=== PATIENT | male | born 1975 ===

== ENCOUNTER 2016-09-09 06:45 | Observation (INO) | payer OTHER ==
[2016-09-09] MEDS ORDERED: Sodium Chloride 0.9% 1,000 ML IV ONE ×2 (07:52→15:05)
[2016-09-09] MEDS ORDERED: Lidocaine 2% Viscous 100 ml PO STA (07:52)
[2016-09-09] MEDS ORDERED: Aluminum Hydroxide/Magnesium Hydroxide Susp (30 mL) PO STA (07:52)
[2016-09-09] MEDS ORDERED: Belladonna-Phenobarbital PO STA (07:52)
[2016-09-09] MEDS ORDERED: Sodium Chloride 0.9% 1,000 ML ONE (08:10)
[2016-09-09] MEDS ORDERED: Alum-Mag Hydrox-Simethicone Susp (30 mL) ONE (08:10)
[2016-09-09] MEDS ORDERED: Belladonna-Phenobarbital ONE (08:10)
[2016-09-09] MEDS ORDERED: Alum-Mag Hydrox-Simethicone Susp (30 mL) PO STA (08:25)
[2016-09-09 08:29] LABS: BASO % 0.2 % (0.0-2.0); EOS # 0.1 K/uL (0.0-0.7); EOS % 1.6 % (0.0-4.0); HEMOGLOBIN 16.2 g/dL (12.0-18.0); LYMPH # 1.4 K/uL (1.0-4.3); LYMPH % 16.1 % (20.0-40.0); MEAN CELL VOLUME 86.5 fL (80.0-94.0); MEAN CORPUSCULAR HEMOGLOBIN 29.5 pg (27.0-31.0); MEAN CORPUSCULAR HGB CONC 34.1 g/dL (33.0-37.0); MEAN PLATELET VOLUME 7.8 fL (7.2-11.7); MONO # 1.1 K/uL (0.0-0.8); MONO % 12.8 % (0.0-10.0); NEUT # 5.9 K/uL (1.8-7.0); NEUT % 69.3 % (50.0-75.0); RBC 5.47 Mil/uL (4.40-5.90); WHITE BLOOD COUNT 8.5 K/uL (4.8-10.8)
[2016-09-09 08:33] LABS: ALBUMIN 4.4 g/dL (3.5-5.0)
[2016-09-09 08:36] LABS: ALB/GLOB RATIO 1.2 (1.0-2.1); ALT/SGPT 69 U/L (21-72); AST/SGOT 73 U/L (17-59); BLOOD UREA NITROGEN 23 mg/dL (9-20); CALCIUM 9.4 mg/dl (8.6-10.4); GFR AFRICAN-AMERICAN > 60; GFR NON-AFRICAN AMERICAN > 60; LIPASE 89 U/L (23-300)
[2016-09-09 08:59] LABS: URINE BILIRUBIN NEGATIVE (NEGATIVE); URINE BLOOD NEGATIVE (NEGATIVE); URINE CLARITY Clear (Clear); URINE COLOR Yellow (YELLOW); URINE GLUCOSE (UA) 2+ mg/dL (Normal); URINE LEUKOCYTE ESTERASE NEG Leu/uL (Negative); URINE NITRATE NEGATIVE (NEGATIVE); URINE PROTEIN NEGATIVE (NEGATIVE); URINE UROBILINOGEN NORMAL mg/dL (0.2-1.0)
--- NOTE | 2016-09-09 08:59 | C.PDOC ---
History Of Present Illness Patient is a 41 y/o male, whose PMHx includes diabetes, that presents to the ED for evaluation of epigastric abdominal pain with bloating feeling for the last 3 days. Patient admits to feeling nauseous, and reports having 1 episode of vomiting last night. Pt notes last BM was 3 days ago. Otherwise, denies any urinary symptoms, fever, chills, or any other associated symptoms at this time. Time Seen by Provider: 09/09/16 07:25 Chief Complaint (Nursing): Abdominal Pain History Per: Patient History/Exam Limitations: no limitations Onset/Duration Of Symptoms: Days (3) Current Symptoms Are (Timing): Still Present Location Of Pain/Discomfort: Epigastric Radiation Of Pain To:: None Quality Of Discomfort: Gas Associated Symptoms: Nausea, Vomiting, Constipation. denies: Fever, Chills, Diarrhea, Loss Of Appetite, Back Pain, Chest Pain, Urinary Symptoms Exacerbating Factors: None Alleviating Factors: None Last Bowel Movement: Days Ago (3) Recent travel outside of the [place]: No Additional History Per: Patient Past Medical History Reviewed: Historical Data, Nursing Documentation, Vital Signs Vital Signs: Last Vital Signs Temp 99.3 F 09/09/16 07:01 Pulse 102 H 09/09/16 07:01 Resp 18 09/09/16 07:01 BP 133/78 09/09/16 07:01 Pulse Ox 96 09/09/16 11:55 - Medical History PMH: Denies: Chronic Kidney Disease Surgical History: Appendectomy Family History: States: Unknown Family Hx - Social History Hx Alcohol Use: Yes Hx Substance Use: No - Immunization History Hx Tetanus Toxoid Vaccination: No Hx Influenza Vaccination: No Hx Pneumococcal Vaccination: No Review Of Systems Except As Marked, All Systems Reviewed And Found Negative. Constitutional: Negative for: Fever, Chills Cardiovascular: Negative for: Chest Pain, Palpitations Gastrointestinal: Positive for: Nausea, Vomiting, Abdominal Pain. Negative for : Diarrhea, Hematemesis Genitourinary: Negative for: Dysuria, Frequency, Hematuria Musculoskeletal: Negative for: Back Pain Skin: Negative for: Rash Neurological: Negative for: Weakness, Numbness Physical Exam - Physical Exam Appears: Non-toxic, No Acute Distress Skin: Normal Color, Warm, Dry Head: Atraumatic, Normacephalic Eye(s): bilateral: Normal Inspection Neck: Normal ROM, Supple Cardiovascular: Rhythm Regular, No Murmur Respiratory: Normal Breath Sounds, No Rales, No Rhonchi, No Wheezing Gastrointestinal/Abdominal: Soft, Tenderness (epigastric), No Guarding, No Rebound Extremity: Normal ROM Neurological/Psych: Oriented x3, Normal Speech, Normal Cognition ED Course And Treatment - Laboratory Results Result Diagrams: 09/09/16 08:21 09/09/16 08:21 O2 Sat by Pulse Oximetry: 96 (on RA) Pulse Ox Interpretation: Normal Progress Note: Blood work, urinalysis, obstructive series x-ray ordered and reviewed. Patient was treated with , Maalox, Pepcid, and IV fluids. Medical Decision Making Medical Decision Making: Patient with possible mechanical obstruction. Discussed with Dr. Cummings. Will hospitalize, observe and re-evaluate. Endorsed to surgical manager. ED OBSERVATION Date of observation admission: 09/09/16 Time of observation admission: 10:00 - Observation admission statement Patient is being placed in observation because:: abdominal pain, still symptomatic, will do CT abdomen Disposition Discussed With : Guillermina Cummings - Disposition Disposition: HOSPITALIZED Disposition Time: 15:03 Condition: STABLE - Clinical Impression Clinical Impression: SBO (small bowel obstruction) - Scribe Statement The provider has reviewed the documentation as recorded by the Scribe Jasmin Cabello All medical record entries made by the Scribe were at my direction and personally dictated by me. I have reviewed the chart and agree that the record accurately reflects my personal performance of the history, physical exam, medical decision making, and the department course for this patient. I have also personally directed, reviewed, and agree with the discharge instructions and disposition. Decision To Admit - Pt Status Changed To: Hospital Disposition Of: Observation - . Bed Request Type: Regular Patient Diagnosis: SBO (small bowel obstruction)
--- NOTE | 2016-09-09 11:23 | RAD ---
PROCEDURE: Radiographs of the chest and abdomen (obstructive series) HISTORY: abd pain COMPARISON: No prior. TECHNIQUE: AP radiograph of the chest, with upright and supine radiographs of the abdomen. FINDINGS: CHEST: Lungs: Clear. Cardiovascular: Normal size heart. No pulmonary vascular congestion. Pleura: No pleural fluid. No pneumothorax. Other findings: None. ABDOMEN AND PELVIS: Bowel: Multiple air-fluid level seen at the left abdomen. [id number] dilated small bowel loops. Free air: None. Bones: Unremarkable. Other findings: None. IMPRESSION: Dilated small bowel loops and multiple air-fluid level at the left abdomen. The possibility of bowel obstruction should be excluded. If clinically warranted further assessment by CT is suggested.
[2016-09-09] MEDS ORDERED: Iohexol 240 (50 ml) ONE (13:28)
--- NOTE | 2016-09-09 14:46 | CT ---
PROCEDURE: CT Abdomen and Pelvis with Oral contrast. HISTORY: abdominal pain, r/o obstruction COMPARISON: None. TECHNIQUE: Contiguous axial images of the abdomen and pelvis. Oral contrast was administered. No IV contrast given. Coronal and Sagittal reformats generated. Radiation dose: Total exam DLP = 1139.29 mGy-cm. This CT exam was performed using one or more of the following dose reduction techniques: Automated exposure control, adjustment of the mA and/or kV according to patient size, and/or use of iterative reconstruction technique. FINDINGS: LOWER THORAX: Unremarkable. LIVER: Mild hepatomegaly is noted. No evidence of discrete mass lesion in the liver in this noncontrast study. GALLBLADDER AND BILE DUCTS: No evidence of cholecystitis. The biliary tree is not dilated. PANCREAS: Unremarkable. No mass. No ductal dilatation. SPLEEN: Unremarkable. No splenomegaly. ADRENALS: Unremarkable. KIDNEYS AND URETERS: Unremarkable. No stone or hydronephrosis. BLADDER: Grossly unremarkable. REPRODUCTIVE: Unremarkable. APPENDIX: Unremarkable. BOWEL: There is moderately dilated small bowel loops at the left mid and upper abdomen. There is a transitional point noted at the mid abdomen image 64 series 2 and image 47 series 601. Small bowel wall thickening is also noted. The possibility of small bowel lesion or adhesion should be considered. PERITONEUM: Unremarkable. No fluid collection. No free air. LYMPH NODES: Unremarkable. No enlarged lymph nodes. VASCULATURE: Unremarkable. No aortic aneurysm. BONES: No fracture or destructive lesion. OTHER FINDINGS: None. IMPRESSION: Small bowel obstruction. Moderately dilated small bowel loops. Transitional point seen at the mid abdomen. Small bowel wall thickening. The underlying etiology for bowel obstruction could be small bowel mass or adhesions.
--- NOTE | 2016-09-09 16:05 | CP.PCM.HP ---
History of Present Illness - History of Present Illness History of Present Illness: Surgery: Dr. Cummings CC: Abd pain HPI: 41M w. pmh of DM presents to ED w. abd pain since Saturday. Pt states that the pain is constant. Pain is in epigastric/LUQ area. Feels like gas pain. Pt has never had this pain before. Pain is accompanied by nausea and vomiting, NBNB. Pt states that he has not passed flatus or had BM since Saturday. CT and obstructive series in ED showed findings consistent w. SBO. Pt denies TREADWELL/ blurred vision, no F/C, no CP/palpitiations, no SOB/cough, no diarrhea, no hematuria/dysuria, no wekaness/fatigue. PMH: DM PSH: appendectomy Meds: MAR reviewed NKDA Social: No ETOH/tobacco/drugs Fhx: Non-contributory Present on Admission - Present on Admission Any Indicators Present on Admission: No Review of Systems - Review of Systems All systems: reviewed and no additional remarkable complaints except (HPI) Past Patient History - Infectious Disease Hx of Infectious Diseases: None - Past Social History Smoking Status: Never Smoked - CARDIAC Hx Cardiac Disorders: No - PULMONARY Hx Respiratory Disorders: No - NEUROLOGICAL Hx Neurological Disorder: No - HEENT Hx HEENT Problems: No - RENAL Hx Chronic Kidney Disease: No - ENDOCRINE/METABOLIC Hx Endocrine Disorders: Yes Hx Diabetes Mellitus Type 2: Yes - HEMATOLOGICAL/ONCOLOGICAL Hx Blood Disorders: No - INTEGUMENTARY Hx Dermatological Problems: No - MUSCULOSKELETAL/RHEUMATOLOGICAL Hx Musculoskeletal Disorders: No - GASTROINTESTINAL Hx Gastrointestinal Disorders: No - GENITOURINARY/GYNECOLOGICAL Hx Genitourinary Disorders: No - PSYCHIATRIC Hx Substance Use: No - SURGICAL HISTORY Hx Appendectomy: Yes - ANESTHESIA Hx Anesthesia: Yes Hx Anesthesia Reactions: No Hx Malignant Hyperthermia: No Meds Allergies/Adverse Reactions: Allergies Allergy/AdvReac Type Severity Reaction Status Date / Time No Known Allergies Allergy Verified 09/09/16 07:03 Physical Exam - Constitutional Appears: Non-toxic, No Acute Distress - Head Exam Head Exam: ATRAUMATIC, NORMOCEPHALIC - Eye Exam Eye Exam: EOMI. absent: Scleral icterus - ENT Exam ENT Exam: Mucous Membranes Moist, Normal External Ear Exam - Neck Exam Neck exam: Positive for: Full Rom - Respiratory Exam Respiratory Exam: NORMAL BREATHING PATTERN. absent: Accessory Muscle Use, Respiratory Distress - GI/Abdominal Exam GI & Abdominal Exam: Soft, Tenderness (epigastric/LUQ). absent: Distended, Firm , Guarding, Rebound, Rigid - Extremities Exam Extremities exam: Negative for: calf tenderness, pedal edema - Neurological Exam Neurological exam: Alert, Oriented x3 Results - Vital Signs Recent Vital Signs: Last Vital Signs Temp 99.3 F 09/09/16 07:01 Pulse 102 H 09/09/16 07:01 Resp 18 09/09/16 07:01 BP 133/78 09/09/16 07:01 Pulse Ox 96 09/09/16 15:04 - Labs Result Diagrams: 09/09/16 08:21 09/09/16 08:21 - Imaging and Cardiology CT scan - abdomen Status: Image reviewed by me, Report reviewed by me Assessment & Plan - Assessment and Plan (Free Text) Assessment: 41M w. SBO -conservative management/bowel rest -NPO -IVF -pain meds -anti-emetics -serial abd exams -monitor bowel fxn -will place NGT if sxs worsen -encourage ambulation -will d/w attending Zedenniseitis PGY3
[2016-09-09] MEDS ORDERED: HYDROmorphone 0.5 mg/0.5 ml ISec IVP PRN (16:09)
[2016-09-09] MEDS: (Novolog) Insulin Aspart, Recombinant 100 u/ml 10 ml vial SC SCH ×2 (17:48→21:49)
[2016-09-09] MEDS: Sodium Chloride 0.9% 1,000 ML IV SCH ×2 (17:52→22:35)
[2016-09-09 18:19] VITALS: RESP 20
[2016-09-10] MEDS: Sodium Chloride 0.9% 1,000 ML IV SCH ×2 (04:42→14:17)
--- NOTE | 2016-09-10 07:31 | CP.PCM.PN ---
Subjective - Date & Time of Evaluation Date of Evaluation: 09/10/16 Time of Evaluation: 07:00 - Subjective Subjective: General surgery progress note for Dr. Silverio Zamora, PGY-1 Pt S & E at bedside. Pt reports flatus, ambulation, ab pain improved. Denies N/V/F/C/SOB, CP, palpitations. Objective - Vital Signs/Intake and Output Vital Signs (last 24 hours): Temp Pulse Resp BP Pulse Ox 98.5 F 77 20 116/69 97 09/10/16 00:12 09/10/16 00:12 09/10/16 00:12 09/10/16 00:12 09/10/16 00:12 Intake and Output: 09/10/16 09/10/16 06:59 18:59 Intake Total 1200 1200 Output Total 500 Balance 700 1200 - Medications Medications: Current Medications Famotidine (Pepcid) 20 mg IVP Q12 [facility] Last Admin: 09/09/16 22:34 Dose: 20 mg Hydromorphone HCl (Dilaudid) 0.5 mg IVP Q4H PRN PRN Reason: Pain, moderate (4-7) Sodium Chloride (Sodium Chloride 0.9%) 1,000 mls @ 150 mls/hr IV .Q6H40M [facility] Last Admin: 09/10/16 04:42 Dose: 150 mls/hr Insulin Aspart (Novolog) 0 unit SC ACHS NELSY PRN Reason: Protocol Last Admin: 09/09/16 21:49 Dose: Not Given Ondansetron HCl (Zofran Inj) 4 mg IVP Q4 PRN PRN Reason: Nausea/Vomiting Pneumococcal Polyvalent Vaccine (Pneumovax 23 Vaccine) 0.5 ml IM .ONCE ONE Stop: 09/11/16 10:01 - Constitutional Appears: Non-toxic, No Acute Distress - Head Exam Head Exam: ATRAUMATIC, NORMAL INSPECTION, NORMOCEPHALIC - Eye Exam Eye Exam: EOMI, Normal appearance - ENT Exam ENT Exam: Mucous Membranes Moist, Normal Exam - Neck Exam Neck Exam: Full ROM - Respiratory Exam Respiratory Exam: Clear to Ausculation Bilateral, NORMAL BREATHING PATTERN - Cardiovascular Exam Cardiovascular Exam: REGULAR RHYTHM, +S1, +S2 - GI/Abdominal Exam GI & Abdominal Exam: Soft, Normal Bowel Sounds. absent: Distended, Firm, Guarding, Rigid, Tenderness - Extremities Exam Extremities Exam: Normal Inspection - Neurological Exam Neurological Exam: Alert, Awake, Oriented x3 - Psychiatric Exam Psychiatric exam: Normal Affect, Normal Mood - Skin Skin Exam: Dry, Intact, Normal Color, Warm Assessment and Plan - Assessment and Plan (Free Text) Assessment: 41M w/SBO, improving Plan: -will advance to [facility]D -FU obstructive series -Pain mgmt -Anti-emetics -Serial ab exams -Monitor bowel fxn -Ambulate -OOBTC -Further recs as per attending DW attending Sera, PGY-1
[2016-09-10] MEDS: (Novolog) Insulin Aspart, Recombinant 100 u/ml 10 ml vial SC SCH ×2 (08:31→11:30)
--- NOTE | 2016-09-10 15:42 | RAD ---
PROCEDURE: Radiographs of the chest and abdomen (obstructive series) HISTORY: SBO COMPARISON: No prior. TECHNIQUE: AP radiograph of the chest, with upright and supine radiographs of the abdomen. FINDINGS: CHEST: Lungs: Clear. Cardiovascular: Normal size heart. No pulmonary vascular congestion. Pleura: No pleural fluid. No pneumothorax. Other findings: None. ABDOMEN AND PELVIS: Bowel: Unremarkable bowel gas pattern. Oral contrast from CT examination of the prior day is seen distributed throughout the colon. There is no evidence of bowel obstruction. Free air: None. Bones: Unremarkable. Other findings: None. IMPRESSION: Unremarkable radiographs of chest and abdomen. No evidence of mechanical bowel obstruction.
[2016-09-10 16:06] VITALS: BP 114/76; PULSE 75; TEMP 98.5; O2SAT 96
[2016-09-11] MEDS ORDERED: Pneumococcal 23-Valent Vaccine IM ONE (10:00)
== END 2016-09-10 17:30 | disposition home or self-care (01) ==
LOC: C.ER 06:45 → C.9OBSV 11:56 → C.9E 15:19 → C.3T 15:32
PROVIDERS: ADMIT Emergency Medicine; ATTEND Specialist
DX: K56.60 Unspecified intestinal obstruction (principal); E11.9 Type 2 diabetes mellitus without complications; Z79.4 Long term (current) use of insulin; Z68.35 Body mass index [BMI] 35.0-35.9, adult
CPT/HCPCS: 74022; 74176; 80053; 81001; 82948; 83690; 85025; 96361; 96374; 96376; 99285; G0378; J7040; Q9966